=== PATIENT | female | born 1975 | race Caucasian/White ===

== ENCOUNTER 2016-08-17 18:12 | Inpatient (IN) | payer OTHER ==
[~2016-08-17] VITALS: Ht 162.6 cm; Wt 106.6 kg
[~2016-08-17 18:12] MED LIST: ASPI1TAB PO; CETI10TA PO; CLON0.5T PO; GABA300C3 PO; GEOD20CA14 PO; GEOD40CA2 PO; HYDR25T PO; IPRASOL4 INH; IRON65TA PO; MAXA10TA15 PO; MONT10TA2 PO; NICO21PAT TD; OXYB10TA PO; PANT40TA2 PO; PARO40TA PO; RANI150T PO; SYMB16INH INH; TRAZ100T4 PO; TRAZ10TA PO; VERA1TAB10 PO; ZIPR80CA12 PO
[2016-08-17 19:41] LABS: MEAN CORPUSCULAR HEMOGLOBIN 31.7 pg (27.0-33.0); MEAN CORPUSCULAR HGB CONC 33.3 g/dl (32.0-36.5); MEAN CORPUSCULAR VOLUME 95.3 fl (80.0-96.0); RED CELL DISTRIBUTION WIDTH 12.4 % (11.5-14.5); WHITE BLOOD COUNT 7.5 K/mm3 (4.0-10.0)
[2016-08-17 20:11] LABS: ALBUMIN/GLOBULIN RATIO 1.21 (1.00-1.93); ALKALINE PHOSPHATASE 67 U/L (45-117); ALT/SGPT 18 U/L (12-78); ANION GAP 7 MEQ/L (8-16); AST/SGOT 13 U/L (15-37); BILIRUBIN,DIRECT < 0.1 MG/DL (0.0-0.2); BILIRUBIN,TOTAL 0.2 MG/DL (0.2-1.0); BLOOD UREA NITROGEN 11 MG/DL (7-18); CALCIUM LEVEL 8.6 MG/DL (8.5-10.1); CARBON DIOXIDE LEVEL 30 MEQ/L (21-32); CHLORIDE LEVEL 106 MEQ/L (98-107); CREATININE FOR GFR 0.75 MG/DL (0.55-1.02); GLOMERULAR FILTRATION RATE > 60.0 (>58); GLUCOSE, FASTING 102 MG/DL (70-105); SODIUM LEVEL 143 MEQ/L (136-145); TOTAL PROTEIN 7.3 GM/DL (6.4-8.2)
[2016-08-17] MEDS ORDERED: REXU1TAB2 PO (20:20)
[2016-08-17] MEDS ORDERED: TRAZ100T4 PO (20:20)
[2016-08-17] MEDS ORDERED: GEOD60CA PO (20:20)
[2016-08-17] MEDS ORDERED: HYDR1CAP25 PO ×2 (20:20)
[2016-08-17] MEDS ORDERED: TYLE500T78 PO (20:20)
[2016-08-17] MEDS ORDERED: PRAZ1CAP PO (20:20)
[2016-08-17] MEDS ORDERED: PAXI40TA2 PO (20:20)
[2016-08-17 20:43] LABS: CONTROL LINE INT CTR LINE PRESENT; METHADONE URINE NEGATIVE (NEGATIVE); TRICYCLIC ANTIDEPRESS URINE NEGATIVE (NEGATIVE)
[2016-08-17] MEDS ORDERED: PANTOPRAZOLE 40MG TAB (PROTONIX) As Ordered ONE (21:17)
[2016-08-17] MEDS ORDERED: ZIPRASIDONE 20MG CAPSULE (GEODON) As Ordered ONE (21:18)
[2016-08-17] MEDS ORDERED: hydrOXYzine 25 MG TAB As Ordered ONE (21:18)
[2016-08-17] MEDS ORDERED: raNITIdine SYRUP 150 MG/10 ML UDC PO ONE (21:30)
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
--- NOTE | 2016-08-17 22:23 | EDDOCDS ---
Physician Documentation [facility] Name: Edna Serrano Age: 41 yrs Sex: Female : 1975 Arrival Date: 08/17/2016 Time: 18:12 Bed BHU1 Private MD: Unknown, Family Dr Disposition: 08/17/16 20:54 Hospitalization ordered by Rosamaria Cheung for Inpatient Admission. Preliminary diagnosis are Suicidal ideations, Adjustment disorder with depressed mood. - Bed requested for Admit. - Status is Inpatient Admission. rw1 - Condition is Stable. - Problem is an ongoing problem. - Symptoms are unchanged. Historical: - Allergies: Ceclor; Clindamycin; Lamictal; meloxicam; PENICILLINS; Septra; SULFA (SULFONAMIDES); - Home Meds: 1. hydroxyzine HCl 25 mg Oral tab 1 tab 3 times per day (Last dose: 08/17/2016 08:00) 2. Paxil 40 mg Oral tab 1 tab once daily (Last dose: 08/17/2016 08:00) 3. Geodon 60 mg oral cap 2 times per day 4. trazodone 100 mg Oral tab 1 tab 5. montelukast 10 mg oral tab 1 tab once daily 6. cetirizine 10 mg oral tab 1 tab once daily 7. Protonix 40 mg Oral TbEC 1 tab 2 times per day 8. Zantac 150 mg Oral tab 1 tab 2 times per day 9. verapamil 120 mg Oral tab daily 10. oxybutynin chloride 10 mg Oral tr24 1 tab once daily 11. Iron CR Oral 12. aspirin 81 mg Oral tab 1 tab once daily 13. Symbicort 160-4.5 mcg/actuation inhalation HFAA 2 puffs 2 times per day 14. DuoNeb 0.5 mg-3 mg(2.5 mg base)/3 mL Inhl nebu as needed 15. Maxalt 10 mg oral tab 16. prazoin unknown dosage Unknown daily - PMHx: Migraines; Bipolar disorder; PTSD; Borderline Personality Disorder; Depression; Anxiety; Asthma; Osteoarthritis; Heart Murmur; TIA; Anemia; GERD; [place]; Seasonal Allergies; Cutting; - PSHx: Hysterectomy; Hernia repair- Umbilical; Carpal Tunnel Repair- Right; Gastric Bypass; Cholecystectomy; - Social history: Smoking status: Patient uses tobacco products, current every day smoker. No barriers to communication noted, The patient speaks fluent [place], Preferred Language: [place]. - Family history: Not pertinent. - : The pt / caregiver states he / she is not on anticoagulants. Home medication list is obtained from the patient. - Exposure Risk Screening:: None identified. HEAVY MEDIA OPERATOR: 08/17 18:30 3, Living 3, LMP N/A - Hysterectomy lf1 Vital Signs: 18:14 BP 128 / 93; Pulse 101; Resp 18 S; Temp 96.9(O); Pulse Ox 98% on R/A; Weight 104.33 kg gr2 / 230.01 lbs (M); Height 5 ft. 4 in. (162.56 cm) (R); Pain 3/10; 22:14 BP 131 / 83; Pulse 70; Resp 16; Temp 97.0(T); Pulse Ox 98% on R/A; rw1 18:14 Body Mass Index 39.48 (104.33 kg, 162.56 cm) gr2 MDM: 18:24 Consult PFS/PSA/Bracelet Maker Novelty ordered. sd1 18:24 Consult PFS/PSA/Bracelet Maker Novelty: Patient's case requires discussion with on-call sd1 Psychiatrist ordered. 18:24 PSA/PFS to call Nursing [employer] [address] Reporter, to enter patient data on [place] Safe Act if patient sd1 involuntarily admitted or transferred for SI or HI ordered. 18:24 Confirm accurate psychiatric medication list and times of last dosage ordered. sd1 18:24 Detain Pt Until Medically/PFS Cleared ordered. sd1 18:25 Acetaminophen Level Ordered. EDMS 18:25 Basic Metabolic Profile Ordered. EDMS 18:25 Complete Blood Count Ordered. EDMS 18:25 Drug Eval Toxicology ED Only Ordered. EDMS 18:25 Ethyl Alcohol (ethanol) Ordered. EDMS 18:25 Liver Profile Ordered. EDMS 18:25 Salicylate Level Ordered. EDMS 18:25 Thyroid Stimulating Hormone Ordered. EDMS 19:11 BED REQUEST+ADM ordered. EDMS 19:13 Financial registration complete. zo 19:19 [facility] Payment Agreement was scanned into [employer] and attached to record. zo 20:50 Basic Metabolic Profile Reviewed. ke 20:50 Liver Profile Reviewed. ke 20:50 Salicylate Level Reviewed. ke 20:50 Acetaminophen Level Reviewed. ke 20:50 Complete Blood Count Reviewed. ke 20:50 Drug Eval Toxicology ED Only Reviewed. ke 20:50 Ethyl Alcohol (ethanol) Reviewed. ke 20:50 Thyroid Stimulating Hormone Reviewed. ke 20:51 Consult PFS/PSA/Bracelet Maker Novelty complete. jmb 20:51 Consult PFS/PSA/Bracelet Maker Novelty: Patient's case requires discussion with on-call jmb Psychiatrist complete. 20:51 PSA/PFS to call Nursing Freel[employer] [address] Reporter, to enter patient data on [place] Safe [place] if patient jmb involuntarily admitted or transferred for SI or HI complete. 21:13 Admit to [facility]: ordered. EDMS 21:14 hydrOXYzine 25 mg PO once ordered. rw1 21:14 Ziprasidone 60 mg PO once; administer with food ordered. rw1 21:14 Pantoprazole 40 mg PO once ordered. rw1 21:14 Ranitidine 150 mg PO once ordered. rw1 21:17 E Legal paperwork was scanned into [employer] and attached to record. ms Administered Medications: 21:52 Drug: hydrOXYzine 25 mg [hydroxyzine HCl 25 mg tablet (1 tabs)] Route: PO; rw1 22:16 Follow up: Response: No Adverse Reaction rw1 21:52 Drug: Ziprasidone 60 mg [ziprasidone 20 mg capsule (3 caps)] Route: PO; rw1 22:16 Follow up: Response: No Adverse Reaction rw1 21:52 Drug: Pantoprazole 40 mg [pantoprazole 40 mg tablet,delayed release (1 tabs)] Route: PO;rw1 22:16 Follow up: Response: No Adverse Reaction rw1 21:52 Drug: Ranitidine 150 mg [ranitidine 150 mg tablet (1 tabs)] Route: PO; rw1 22:16 Follow up: Response: No Adverse Reaction rw1 Signatures: Dispatcher [employer] EDME Agueda Gleason MD MD sd1 Anita Canchola, PSA PSA ms Carl Santiago, PRINT SHOP ASSISTANT PRINT SHOP ASSISTANT Aubrey Law,WATERSHED COORDINATOR WATERSHED COORDINATOR rw1 Kleber [place] Lisa,RN RN lf1 Seven Roberts RN RN echo The chart was reviewed and I authenticate all verbal orders and agree with the evaluation and treatment provided.Attachments: 19:19 [facility] Payment Agreement zo MTDD
[2016-08-17 22:30] VITALS: BP 131/94
[2016-08-17] MEDS ORDERED: MOM 30ML SUSPENSION UDC PO PRN (23:15)
[2016-08-17] MEDS ORDERED: traZODone 50 MG TAB PO PRN (23:15)
[2016-08-17] MEDS ORDERED: MAALOX 30 ML SUSP *UDC PO PRN (23:15)
[2016-08-17] MEDS ORDERED: IPRATROPIUM 0.5MG/ALBUTEROL 2.5MG INH SOL UD 3ML (DUONEB)(J7620) NEB PRN (23:15)
[2016-08-18] MEDS: SYMBICORT 160/4.5MCG INHALER 6GM INH SCH ×3 (00:24→21:47)
[2016-08-18] MEDS: MONTELUKAST 10 MG TAB PO SCH ×2 (00:24→21:46)
[2016-08-18] MEDS: CETIRIZINE (ZyrTEC) 10 MG TAB PO SCH ×2 (00:24→22:31)
[2016-08-18] MEDS: oxyBUTYnin *DITROPAN XL* 5 MG TABCR PO SCH ×2 (00:24→21:47)
[2016-08-18] MEDS: PRAZOSIN 1 MG CAP PO SCH ×2 (00:31→21:46)
[2016-08-18 06:35] VITALS: BP 151/90
[2016-08-18] MEDS: ZIPRASIDONE 20MG CAPSULE (GEODON) PO SCH ×2 (08:54→17:49)
[2016-08-18] MEDS: PANTOPRAZOLE 40MG TAB (PROTONIX) PO SCH ×2 (08:54→21:46)
[2016-08-18] MEDS: NICOTINE 21MG/24HR 1 EA TRANSDERMAL TD SCH (08:54)
[2016-08-18] MEDS: ASPIRIN 81 MG ENTERIC TAB PO SCH (08:54)
[2016-08-18] MEDS: raNITIdine SYRUP 150 MG/10 ML UDC PO SCH ×2 (08:54→21:47)
[2016-08-18] MEDS: hydrOXYzine 25 MG TAB PO SCH ×3 (08:54→21:47)
[2016-08-18] MEDS: VERAPAMIL 120 MG SR TAB PO SCH (08:55)
[2016-08-18] MEDS ORDERED: PARoxetine 20 MG TAB PO SCH (09:00)
[2016-08-18] MEDS ORDERED: QUEtiapine FUMARATE 12.5 MG HALF-TAB PO PRN (11:00)
--- NOTE | 2016-08-18 11:49 | HPEPDOC ---
Medical History and Physical Date of Admission Aug 17, 2016 at 22:28 History and Physical PCP: Jarrett LIN ATTENDING: Dr. Graham Kingsley HPI: 41yoF admitted to [facility] for other specified depressive disorder, being medically examined today. Patient states she is having chronic low back pain which has been worse. Bilateral knee pain. Sometimes her knees lock up. She feels weak at times in her lower extremities. Pain has been radiating down her legs to her knees. Occasionally numbness and tingling in her legs. No loss of bowel or bladder control. Previously she had been following with pain management and [facility]. She moved and she has no longer been following there. She has been awaiting a new referral to pain management. She has no longer been taking gabapentin because she states it was ineffective. She does not complain of neck pain. No weakness, numbness, or tingling in upper extremities. She states she is known to have a pituitary cyst, a follow-up MRI was recently completed an [place]. She was referred to Dr. Briones, neurosurgery at [facility]. Appointment is scheduled for 09/06/16. Denies any fevers, chills, weakness, fatigue, RESENDEZ, CP, SOB, cough, palpitations, abdominal pain, N/V/D or changes in bowel or bladder habits. PMHx: Anxiety Depression Bipolar disorder PTSD Self-mutilation Migraine headache Asthma Osteoarthritis Chronic pain/low back pain. Vitiligo Allergic rhinitis GERD OAB Iron deficiency anemia History of obesity/gastric bypass PSHX: Hysterectomy Umbilical hernia repair Right carpal tunnel release Gastric bypass Cholecystectomy SOCHX: Resides in: Recently moved to [facility] from [facility] Marital Status: Kids: 3 Employment: Unemployed Tobacco use: 2 packs per day ETOH: One to 2 drinks per month Illicit Drugs: Denies IV Drug Use: Denies Tattoos done unprofessionally: Denies FAMHX: Mother: Alive, COPD, heart disease, osteoarthritis Father: , MVA Siblings: None Children: Alive, well Unexpected deaths due to medical reasons: None. ROS: As noted in HPI, otherwise 11pt ROS of systems reviewed and remarkable for hysterectomy PE: GEN: 41yoF, appears stated age. Well-nourished, well developed. No acute distress. Alert and oriented x 3. Pleasant, interactive. HEENT: Normocephalic, atraumatic. Pupils are equal, round, and reactive to light. Extraocular movements are intact. No nystagmus appreciated. Sclera are nonicteric. Conjunctiva without injection. Nose midline. Nasal turbinates without bogginess. EACs both patent BL. TMs both visualized and bunch with good cone of light, no bulging or erythema. No facial asymmetry. Moist mucous membranes. Dentition fair. Pharynx pink and moist, no cobblestoning. Neck supple , trachea midline. No lymphadenopathy or thyromegaly appreciated. CHEST: Regular rate and rhythm, +S1, +S2 LUNGS: Clear to auscultation bilaterally. No wheezes, rales, or rhonchi. Breathing appears symmetric and easy. Patient is speaking in full sentences. No accessory muscle use. ABD: Round, soft, non-tender, non-distended. +Bowel sounds throughout. No rebound or guarding. No costovertebral angle tenderness. EXT: Pulses 2+ bilaterally dorsalis pedis and radial. No lower extremity edema appreciated. SKIN: [place], dry, warm. Capillary refill <2sec. Vitiligo noted. Approx 1.5 cm Laceration left wrist. No drainage. NEURO: Alert and oriented x 3. Cranial nerves III-XII are intact. No focal deficits appreciated. EK06/08/16 sinus rhythm 79 bpm. A&P: 41yoF admitted to [facility] for other specified depressive disorder 1. Psych. Plan per Psychiatry. EKG on file. 2. Nicotine dependence. Patch available. 3. Asthma. Continue Symbicort, Singulair, DuoNeb as needed. 4. Follow up with PCP on discharge. 5. Allergic rhinitis. Continue Zyrtec 10 mg daily. 6. GERD. Continue Protonix/Zantac. 7. Chronic pain. Patient currently remains on Tylenol as needed. Apply Lidoderm patch to low back as needed. Patient requests pain management opinion. She states gabapentin in the past has been ineffective. 8. Chronic migraine headache. Continue verapamil 120 mg daily. Maxalt as needed at onset of headache. 9. Iron deficiency anemia. Continue iron supplement. 10. OAB. Continue oxybutynin. 11. Laceration left wrist. Appears to be healing. Monitor. 12. History of pituitary adenoma per patient. Request copy of imaging from [facility]. Patient has appointment scheduled with Dr. Briones, neurosurgery 09/06/16. 13. Staff member present throughout exam Mansi SOUZA. Vital Signs Vital Signs Label Value Date Time Patient Temperature 97.6 degrees F 08/18/16 0635 Temperature Source Tympanic 08/18/16 0635 Pulse 108 08/18/16 0635 Respiratory Rate 20 bpm 08/18/16 0635 Blood Pressure Assessment 151/90 (110) 08/18/16 0635 Blood Pressure Assessment 132/80 08/18/16 0031 Laboratory Data Labs 24H Laboratory Tests 2 08/17/16 19:26: Acetaminophen Level 18.5, Aspartate Amino Transf (AST/SGOT) 13L, Alanine Aminotransferase (ALT/SGPT) 18, Alkaline Phosphatase 67, Total Bilirubin 0.2, Direct Bilirubin < 0.1, Albumin 4.0, Albumin/Globulin Ratio 1.21, Anion Gap 7L, Calcium Level 8.6, Ethyl Alcohol Level < 0.003, Glomerular Filtration Rate > 60.0, Salicylates Level 4.5L, Thyroid Stimulating Hormone (TSH) 1.130, Total Protein 7.3 08/17/16 19:39: Urine Amphetamines Screen NEGATIVE, Urine Benzodiazepines Screen NEGATIVE, Urine Opiates Screen NEGATIVE, Urine Barbiturates Screen NEGATIVE, Urine Cannabinoids Screen NEGATIVE, Urine Cocaine Metabolite Screen NEGATIVE, Urine Methadone Screen NEGATIVE, Urine Tricyclic Antidepressants NEGATIVE CBC/BMP Laboratory Tests 08/17/16 19:26 Red Blood Count 4.68, Mean Corpuscular Volume 95.3, Mean Corpuscular Hemoglobin 31.7, Mean Corpuscular Hemoglobin Concent 33.3, Red Cell Distribution Width 12.4 Home Medications Scheduled (Iron) 325 Mg Tab 325 MG PO QHS Aspirin (Aspirin 81) 81 Mg Tab 81 MG PO DAILY Brexpiprazole (Rexulti) 0.5 Mg Tab 0.5 MG PO DAILY D/C OF 08/17/16 Budesonide/Formoterol (Symbicort 160-4.5 Mcg/Act) 60 Puff/Inhaler Aers 2 PUFF INH BID Cetirizine HCl (Cetirizine HCl) 10 Mg Tab 10 MG PO QHS Hydroxyzine Pamoate (Hydroxyzine Pamoate) 25 Mg Cap 25 MG PO TID Montelukast Sodium (Montelukast Sodium) 10 Mg Tab 10 MG PO QHS Oxybutynin Chloride (Oxybutynin Chloride ER) 10 Mg Tab 10 MG PO QHS Pantoprazole Sodium (Pantoprazole Sodium) 40 Mg Tab 40 MG PO BID Paroxetine Hydrochloride (Paxil) 40 Mg Tab 40 MG PO DAILY Prazosin Hcl (Prazosin HCl) 1 Mg Cap 1 MG PO QHS Ranitidine HCl (Ranitidine HCl) 150 Mg Tab 1 TAB PO BID Trazodone HCl (Trazodone HCl) 100 Mg Tab 100 MG PO QHS Verapamil HCl (Verapamil HCl ER) 120 Mg Tab 120 MG PO DAILY Ziprasidone Hydrochloride (Geodon) 60 Mg Cap 60 MG PO BID Scheduled PRN Acetaminophen (Tylenol Extra Strength) 500 Mg Tab 1,000 MG PO Q8H PRN PRN PAIN Albuterol/Ipratropium (Ipratropium [place]/Albut 0.5-2.5 (3) mg/3Ml) 1 Abida Abida 1 ABIDA INH QID PRN PRN SHORTNESS OF BREATH Hydroxyzine Pamoate (Hydroxyzine Pamoate) 25 Mg Cap 25 MG PO DAILY PRN PRN ANXIETY Rizatriptan Benzoate (Maxalt-Retail Planning Manager) 10 Mg Tab 10 MG PO PRN PRN PRN MIGRAINE Allergies Coded Allergies: Cefaclor (Unverified Allergy, Unknown, 07/08/15) Clindamycin (Unverified Allergy, Unknown, 07/08/15) Lamotrigine (Unverified Allergy, Unknown, 07/08/15) Meloxicam (Unverified Allergy, Unknown, 08/17/16) Penicillins (Unverified Allergy, Unknown, 07/08/15) Sulfa Antibiotics (Unverified Allergy, Unknown, 07/08/15) Sulfamethoxazole w/Trimethoprim (Unverified Allergy, Unknown, 08/17/16) Topiramate (Unverified Allergy, Unknown, 07/08/15) Valorie Vallejo Aug 18, 2016 11:49
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
[2016-08-18] MEDS: LIDOCAINE 5% (LIDODERM) PATCH TD SCH (12:29)
[2016-08-18] MEDS: OXcarbazepine 150 MG TAB PO SCH ×2 (12:29→21:47)
--- NOTE | 2016-08-18 16:50 | CR.PDOC ---
[facility] Pain Clinic Consultation General Date of Consultation: 08/18/16 Consultation Report For: Valorie Vallejo Chief Complaint The patient is a 41-year-old female admitted with a reason for visit of Other Specified Depressive D/O. pain management is asked to see the patient for history of chronic low back pain History of Present Illness Edna Serrano is a 41-year-old female who reports that she has had pain across her low back into the buttocks and into the legs for at least the last 5 years. She reports several falls including falling down the stairs which did increase her back pain. Reports that she has been treated by pain management in her former home where they did do interventional therapy which she found very helpful. She had also previously been on gabapentin 300 mg 3 times a day which she initially thought was not helpful but when she stopped it realized that it was helping to her pain under better control. Reports she also has a history of migraine headaches and has been on verapamil for prevention and has had Botox injections with great success. States that she was due for her Botox in June but was not able to receive this and headaches are now much more frequent and more severe. States that prior headache frequency was greater than 15 days per month and headaches were lasting 8-12 hours per day. Following Botox noted her headaches diminished to 2-3 per month and were much more manageable with her abortive medication. Reports that she had does have a dull headache today. Notes that her back pain is presently rated as a 6-7/10. Describes the back pain as an ache and a throb. Home Medications Scheduled (Iron) 325 Mg Tab 325 MG PO QHS (Reported) Aspirin (Aspirin 81) 81 Mg Tab 81 MG PO DAILY (Reported) Brexpiprazole (Rexulti) 0.5 Mg Tab 0.5 MG PO DAILY (Reported) D/C OF 08/17/16 Budesonide/Formoterol (Symbicort 160-4.5 Mcg/Act) 60 Puff/Inhaler Aers 2 PUFF INH BID (Reported) Cetirizine HCl (Cetirizine HCl) 10 Mg Tab 10 MG PO QHS (Reported) Hydroxyzine Pamoate (Hydroxyzine Pamoate) 25 Mg Cap 25 MG PO TID (Reported) Montelukast Sodium (Montelukast Sodium) 10 Mg Tab 10 MG PO QHS (Reported) Oxybutynin Chloride (Oxybutynin Chloride ER) 10 Mg Tab 10 MG PO QHS (Reported) Pantoprazole Sodium (Pantoprazole Sodium) 40 Mg Tab 40 MG PO BID (Reported) Paroxetine Hydrochloride (Paxil) 40 Mg Tab 40 MG PO DAILY (Reported) Prazosin Hcl (Prazosin HCl) 1 Mg Cap 1 MG PO QHS (Reported) Ranitidine HCl (Ranitidine HCl) 150 Mg Tab 1 TAB PO BID (Reported) Trazodone HCl (Trazodone HCl) 100 Mg Tab 100 MG PO QHS (Reported) Verapamil HCl (Verapamil HCl ER) 120 Mg Tab 120 MG PO DAILY (Reported) Ziprasidone Hydrochloride (Geodon) 60 Mg Cap 60 MG PO BID (Reported) Scheduled PRN Acetaminophen (Tylenol Extra Strength) 500 Mg Tab 1,000 MG PO Q8H PRN PRN PAIN ( Reported) Albuterol/Ipratropium (Ipratropium [place]/Albut 0.5-2.5 (3) mg/3Ml) 1 Abida Abida 1 ABIDA INH QID PRN PRN SHORTNESS OF BREATH (Reported) Hydroxyzine Pamoate (Hydroxyzine Pamoate) 25 Mg Cap 25 MG PO DAILY PRN PRN ANXIETY (Reported) Rizatriptan Benzoate (Maxalt-Hospice Administrator) 10 Mg Tab 10 MG PO PRN PRN PRN MIGRAINE ( Reported) Allergies Coded Allergies: Cefaclor (Unverified Allergy, Unknown, 07/08/15) Clindamycin (Unverified Allergy, Unknown, 07/08/15) Lamotrigine (Unverified Allergy, Unknown, 07/08/15) Meloxicam (Unverified Allergy, Unknown, 08/17/16) Penicillins (Unverified Allergy, Unknown, 07/08/15) Sulfa Antibiotics (Unverified Allergy, Unknown, 07/08/15) Sulfamethoxazole w/Trimethoprim (Unverified Allergy, Unknown, 08/17/16) Topiramate (Unverified Allergy, Unknown, 07/08/15) Past Medical History Medical History S medical history significant for depression with a history of self injury, migraine headache, pituitary adenoma to be evaluated by Dr. Martinez [facility]. Family History Family History Noncontributory Social History Social History Positive for tobacco use at 1-2 packs per day, alcohol at 1-2 servings daily. Denies illicit substance use. Review of Systems Subjective Constitutional: Reports: fatigue, other (denies fever or chills), Denies: unexplained weight loss HEENT: Denies: difficulty swallowing, hearing problems, nose congestion Skin: Denies: breakdown, lesions, rash Pulmonary: Denies: cough, dyspnea Cardiovascular: Denies: chest pain, edema, palpitations Gastrointestinal: Denies: loss of bowel control Genitourinary: Reports: other (notes urinary frequency), Denies: dysuria, hematuria, loss of bladder control Hematologic: Denies: blood dyscrasias, easy bleeding, easy bruising Endocrine: Denies: Diabetes mellitus Musculoskeletal: Reports: leg pain, muscle stiffness, other (low back pain radiating into the hips), spasms Neurological: Reports: migraines, numbness, pre-existing deficit, Denies: seizures, tremors, weakness Psych: Reports: depression, mood normal, other (as per Dr. stephens) Physical Examination Physical Examination Vital Signs/I&O Vital Signs Date Time Temp Pulse Resp B/P Pulse Ox O2 Delivery O2 Flow Rate FiO2 08/18/16 08:55 108 151/90 08/18/16 06:35 97.6 20 08/17/16 22:30 94 Room Air General Exam: Positive: alert, attentive, no acute distress, oriented times three, talkative Visual Analog Score (VAS) For: 7 Chest Exam: Positive: Clear to auscultation, Negative: Rales, Wheezing Heart Exam: Positive: Normal S1, S2, Regular rate and rhythm, Negative: Murmurs, Rubs Abdominal Exam: Positive: Nondistended, Normal bowel sounds, Soft Extremity Exam: Negative: Edema Skin Exam: Positive: Dry, Warm, Negative: Lesions, Rashes Neuro Exam: Positive: Muscle Strength U/L Ext., Normal Tone, Other (DTRs 1+ in the bilateral upper extremities 2+ at the right knee trace to absent at the left knee) Psych Exam: Positive: Oriented times three, Other (excellent historian, pleasant and interact with, good eye contact) Inspection of spine Point tenderness over lumbar spinous processes and across the lumbosacral axis. Specific tenderness is elicited over the lumbar facets and paravertebral muscles bilaterally. No specific sacroiliac joint tenderness noted. Muscle strength 5 over 5 distally and proximally in the upper and lower extremities. Able to rise to a standing position. Posture is upright gait is wide-based but nonantalgic Laboratory Data Labs 24H Laboratory Tests 2 08/17/16 19:26: Acetaminophen Level 18.5, Aspartate Amino Transf (AST/SGOT) 13L, Alanine Aminotransferase (ALT/SGPT) 18, Alkaline Phosphatase 67, Total Bilirubin 0.2, Direct Bilirubin < 0.1, Albumin 4.0, Albumin/Globulin Ratio 1.21, Anion Gap 7L, Calcium Level 8.6, Ethyl Alcohol Level < 0.003, Glomerular Filtration Rate > 60.0, Salicylates Level 4.5L, Thyroid Stimulating Hormone (TSH) 1.130, Total Protein 7.3 08/17/16 19:39: Urine Amphetamines Screen NEGATIVE, Urine Benzodiazepines Screen NEGATIVE, Urine Opiates Screen NEGATIVE, Urine Barbiturates Screen NEGATIVE, Urine Cannabinoids Screen NEGATIVE, Urine Cocaine Metabolite Screen NEGATIVE, Urine Methadone Screen NEGATIVE, Urine Tricyclic Antidepressants NEGATIVE Assessment 1 migraine headache without aura 2. Chronic low back pain 3. Lumbar facet arthropathy per history Recommendation and Plan Recommendation and plan. Would recommend restart of gabapentin 300 mg at twice per day. She has recently been started on oxcarbazepine so I would not want to return to her previous dose of gabapentin. She is currently using Lidoderm patch which she has found helpful. If she continues to have significant pain while on the unit could try a small dose of tizanidine 2 mg twice a day for muscle spasms. Currently her health care provider is Rand Khan at [facility]. She has had previous very good response to both Botox and diagnostic facet block and radiofrequency denervation. Would recommend that she obtain a referral to the [facility] pain center or to another pain center of her choice for further evaluation and treatment with these therapies. I did also suggest to the patient that she take advantage of the yoga classes and she thought that this might be a good idea. Thank you Vallejo for allowing us to participate in the care of your patient Edna Serrano. Should you have any further questions we'll be glad to discuss this with you at any time. Angelita Reddy Aug 18, 2016 16:50
[2016-08-18 18:00] VITALS: BP 106/67
[2016-08-18] MEDS: **NOTE PATIENT COMMENT** MISC XX SCH (21:00)
[2016-08-18] MEDS: QUEtiapine FUMARATE 100 MG TAB PO SCH (21:46)
[2016-08-18] MEDS: FERROUS SULFATE 325MG TAB PO SCH (21:47)
[2016-08-19 06:44] VITALS: BP 128/83
[2016-08-19] MEDS: SYMBICORT 160/4.5MCG INHALER 6GM INH SCH ×2 (08:14→20:40)
[2016-08-19] MEDS: PANTOPRAZOLE 40MG TAB (PROTONIX) PO SCH ×2 (08:14→20:40)
[2016-08-19] MEDS: hydrOXYzine 25 MG TAB PO SCH ×3 (08:14→20:40)
[2016-08-19] MEDS: PARoxetine 10MG TABLET PO SCH (08:14)
[2016-08-19] MEDS: ASPIRIN 81 MG ENTERIC TAB PO SCH (08:14)
[2016-08-19] MEDS: ZIPRASIDONE 20MG CAPSULE (GEODON) PO SCH ×2 (08:14→17:58)
[2016-08-19] MEDS: OXcarbazepine 150 MG TAB PO SCH ×2 (08:14→20:41)
[2016-08-19] MEDS: NICOTINE 21MG/24HR 1 EA TRANSDERMAL TD SCH (08:15)
[2016-08-19] MEDS: raNITIdine SYRUP 150 MG/10 ML UDC PO SCH ×2 (08:15→20:39)
[2016-08-19] MEDS: VERAPAMIL 120 MG SR TAB PO SCH (08:16)
[2016-08-19] MEDS: LIDOCAINE 5% (LIDODERM) PATCH TD SCH (08:18)
--- NOTE | 2016-08-19 16:27 | IPN ---
DATE: 08/19/2016 A 41-year-old female with bipolar disorder and posttraumatic stress disorder (PTSD), admitted with severe symptoms of depression and suicidal ideation. MEDICATIONS: - Paxil 10 mg by mouth every morning - Seroquel 100 mg by mouth at bedtime - Seroquel 12.5 mg by mouth twice a day - Geodon 60 mg by mouth twice a day - prazosin 1 mg by mouth at bedtime SUBJECTIVE: "I'm in pain today." OBJECTIVE: No major changes from yesterday. Patient denies side effects from the medications. She slept better with the help of Seroquel. Patient's antidepressant medication has been decreased to a minimum since it could create hyperactivation and high anxiety and mixed episodes. MENTAL STATUS EXAMINATION: Patient is dressed in [facility]. Patient has fair eye contact. Speech is slow and monotone. Mood is depressed and anxious. Affect is labile. No evidence of delusions or hallucinations. Short and long-term memory are fair. Patient is fully oriented. Associations are intact. Thinking is logical. Thought content is appropriate. Patient is able to contract for safety in our unit. Denies suicidal or homicidal ideation during the interview. Insight and judgment are limited. ASSESSMENT: 1. Bipolar disorder, mixed episode. 2. Posttraumatic stress disorder. PLAN: 1. Continue with Paxil 10 mg by mouth every morning. 2. Seroquel 12.5 mg by mouth twice a day plus 100 mg by mouth at bedtime. 3. Trileptal 75 mg by mouth twice a day. 4. Geodon 60 mg by mouth twice a day. 5. Prazosin 1 mg by mouth at bedtime. 6. Continue medication management, individual and group therapy.
[2016-08-19 18:00] VITALS: BP 136/85
[2016-08-19] MEDS: ACETAMINOPHEN TAB 650MG DOSE (2X325MG) PO PRN (19:04)
[2016-08-19] MEDS: QUEtiapine FUMARATE 100 MG TAB PO SCH (20:40)
[2016-08-19] MEDS: PRAZOSIN 1 MG CAP PO SCH (20:40)
[2016-08-19] MEDS: MONTELUKAST 10 MG TAB PO SCH (20:40)
[2016-08-19] MEDS: FERROUS SULFATE 325MG TAB PO SCH (20:40)
[2016-08-19] MEDS: CETIRIZINE (ZyrTEC) 10 MG TAB PO SCH (20:40)
[2016-08-19] MEDS: oxyBUTYnin *DITROPAN XL* 5 MG TABCR PO SCH (20:42)
[2016-08-19] MEDS: **NOTE PATIENT COMMENT** MISC XX SCH (20:42)
--- NOTE | 2016-08-19 23:23 | EDDOCDS ---
Physician Documentation [facility] Name: Edna Serrano Age: 41 yrs Sex: Female : 1975 Arrival Date: 08/17/2016 Time: 18:12 Bed BHU1 Private MD: Unknown, Family Dr Disposition: 08/17/16 20:54 Hospitalization ordered by Rosamaria Cheung for Inpatient Admission. Preliminary diagnosis are Suicidal ideations, Adjustment disorder with depressed mood. - Bed requested for Admit. - Status is Inpatient Admission. rw1 - Condition is Stable. - Problem is an ongoing problem. - Symptoms are unchanged. Historical: - Allergies: Ceclor; Clindamycin; Lamictal; meloxicam; PENICILLINS; Septra; SULFA (SULFONAMIDES); - Home Meds: 1. hydroxyzine HCl 25 mg Oral tab 1 tab 3 times per day (Last dose: 08/17/2016 08:00) 2. Paxil 40 mg Oral tab 1 tab once daily (Last dose: 08/17/2016 08:00) 3. Geodon 60 mg oral cap 2 times per day 4. trazodone 100 mg Oral tab 1 tab 5. montelukast 10 mg oral tab 1 tab once daily 6. cetirizine 10 mg oral tab 1 tab once daily 7. Protonix 40 mg Oral TbEC 1 tab 2 times per day 8. Zantac 150 mg Oral tab 1 tab 2 times per day 9. verapamil 120 mg Oral tab daily 10. oxybutynin chloride 10 mg Oral tr24 1 tab once daily 11. Iron CR Oral 12. aspirin 81 mg Oral tab 1 tab once daily 13. Symbicort 160-4.5 mcg/actuation inhalation HFAA 2 puffs 2 times per day 14. DuoNeb 0.5 mg-3 mg(2.5 mg base)/3 mL Inhl nebu as needed 15. Maxalt 10 mg oral tab 16. prazoin unknown dosage Unknown daily - PMHx: Migraines; Bipolar disorder; PTSD; Borderline Personality Disorder; Depression; Anxiety; Asthma; Osteoarthritis; Heart Murmur; TIA; Anemia; GERD; [place]; Seasonal Allergies; Cutting; - PSHx: Hysterectomy; Hernia repair- Umbilical; Carpal Tunnel Repair- Right; Gastric Bypass; Cholecystectomy; - Social history: Smoking status: Patient uses tobacco products, current every day smoker. No barriers to communication noted, The patient speaks fluent Swiss, Preferred Language: Swiss. - Family history: Not pertinent. - : The pt / caregiver states he / she is not on anticoagulants. Home medication list is obtained from the patient. - Exposure Risk Screening:: None identified. INTERNAL MEDICINE NURSE PRACTITIONER: 08/17 18:30 3, Living 3, LMP N/A - Hysterectomy lf1 Vital Signs: 18:14 BP 128 / 93; Pulse 101; Resp 18 S; Temp 96.9(O); Pulse Ox 98% on R/A; Weight 104.33 kg gr2 / 230.01 lbs (M); Height 5 ft. 4 in. (162.56 cm) (R); Pain 3/10; 22:14 BP 131 / 83; Pulse 70; Resp 16; Temp 97.0(T); Pulse Ox 98% on R/A; rw1 18:14 Body Mass Index 39.48 (104.33 kg, 162.56 cm) gr2 MDM: 18:24 Consult PFS/PSA/Lever Miller ordered. sd1 18:24 Consult PFS/PSA/Lever Miller: Patient's case requires discussion with on-call sd1 Psychiatrist ordered. 18:24 PSA/PFS to call Nursing Route Aide, to enter patient data on [place] Safe [place] if patient sd1 involuntarily admitted or transferred for SI or HI ordered. 18:24 Confirm accurate psychiatric medication list and times of last dosage ordered. sd1 18:24 Detain Pt Until Medically/PFS Cleared ordered. sd1 18:25 Acetaminophen Level Ordered. EDMS 18:25 Basic Metabolic Profile Ordered. EDMS 18:25 Complete Blood Count Ordered. EDMS 18:25 Drug Eval Toxicology ED Only Ordered. EDMS 18:25 Ethyl Alcohol (ethanol) Ordered. EDMS 18:25 Liver Profile Ordered. EDMS 18:25 Salicylate Level Ordered. EDMS 18:25 Thyroid Stimulating Hormone Ordered. EDMS 19:11 BED REQUEST+ADM ordered. EDMS 19:13 Financial registration complete. zo 19:19 [facility] Payment Agreement was scanned into Perfect and attached to record. zo 20:50 Basic Metabolic Profile Reviewed. ke 20:50 Liver Profile Reviewed. ke 20:50 Salicylate Level Reviewed. ke 20:50 Acetaminophen Level Reviewed. ke 20:50 Complete Blood Count Reviewed. ke 20:50 Drug Eval Toxicology ED Only Reviewed. ke 20:50 Ethyl Alcohol (ethanol) Reviewed. ke 20:50 Thyroid Stimulating Hormone Reviewed. ke 20:51 Consult PFS/PSA/Lever Miller complete. jmb 20:51 Consult PFS/PSA/Lever Miller: Patient's case requires discussion with on-call jmb Psychiatrist complete. 20:51 PSA/PFS to call Nursing Route Aide, to enter [place] data [place] if patient jmb involuntarily admitted or transferred for SI or HI complete. 21:13 Admit to [facility]: ordered. EDMS 21:14 hydrOXYzine 25 mg PO once ordered. rw1 21:14 Ziprasidone 60 mg PO once; administer with food ordered. rw1 21:14 Pantoprazole 40 mg PO once ordered. rw1 21:14 Ranitidine 150 mg PO once ordered. rw1 21:17 [facility] Legal paperwork was scanned into Perfect and attached to record. ms 08/18 17:44 T-Sheet-- Draft Copy was scanned into Perfect and attached to record. klr Administered Medications: 08/17 21:52 Drug: hydrOXYzine 25 mg [hydroxyzine HCl 25 mg tablet (1 tabs)] Route: PO; rw1 22:16 Follow up: Response: No Adverse Reaction rw1 21:52 Drug: Ziprasidone 60 mg [ziprasidone 20 mg capsule (3 caps)] Route: PO; rw1 22:16 Follow up: Response: No Adverse Reaction rw1 21:52 Drug: Pantoprazole 40 mg [pantoprazole 40 mg tablet,delayed release (1 tabs)] Route: PO;rw1 22:16 Follow up: Response: No Adverse Reaction rw1 21:52 Drug: Ranitidine 150 mg [ranitidine 150 mg tablet (1 tabs)] Route: PO; rw1 22:16 Follow up: Response: No Adverse Reaction rw1 Signatures: Dispatcher MedHoMailTime EDMS Agueda Gleason MD MD sd1 Anita Canchola, PSA PSA ms JackCarl, OUTSIDE PARTS SALES OUTSIDE PARTS SALES Aubrey Law,ARCHITECT IN TRAINING ARCHITECT IN TRAINING rw1 Kleber Naranjo LisaRN RN lf1 Seven Roberts RN RN Sally Cates klnilda The chart was reviewed and I authenticate all verbal orders and agree with the evaluation and treatment provided.Attachments: 19:19 [facility] Payment Agreement zo 08/18 17:44 T-Sheet-- Draft Copy klr Chart Complete MTDD
--- NOTE | 2016-08-19 23:23 | EDDOCDS ---
Physician Documentation [facility] Name: Edna Serrano Age: 41 yrs Sex: Female : 1975 Arrival Date: 08/17/2016 Time: 18:12 Bed BHU1 Private MD: Unknown, Family Dr Disposition: 08/17/16 20:54 Hospitalization ordered by Rosamaria Cheung for Inpatient Admission. Preliminary diagnosis are Suicidal ideations, Adjustment disorder with depressed mood. - Bed requested for Admit. - Status is Inpatient Admission. rw1 - Condition is Stable. - Problem is an ongoing problem. - Symptoms are unchanged. Historical: - Allergies: Ceclor; Clindamycin; Lamictal; meloxicam; PENICILLINS; Septra; SULFA (SULFONAMIDES); - Home Meds: 1. hydroxyzine HCl 25 mg Oral tab 1 tab 3 times per day (Last dose: 08/17/2016 08:00) 2. Paxil 40 mg Oral tab 1 tab once daily (Last dose: 08/17/2016 08:00) 3. Geodon 60 mg oral cap 2 times per day 4. trazodone 100 mg Oral tab 1 tab 5. montelukast 10 mg oral tab 1 tab once daily 6. cetirizine 10 mg oral tab 1 tab once daily 7. Protonix 40 mg Oral TbEC 1 tab 2 times per day 8. Zantac 150 mg Oral tab 1 tab 2 times per day 9. verapamil 120 mg Oral tab daily 10. oxybutynin chloride 10 mg Oral tr24 1 tab once daily 11. Iron CR Oral 12. aspirin 81 mg Oral tab 1 tab once daily 13. Symbicort 160-4.5 mcg/actuation inhalation HFAA 2 puffs 2 times per day 14. DuoNeb 0.5 mg-3 mg(2.5 mg base)/3 mL Inhl nebu as needed 15. Maxalt 10 mg oral tab 16. prazoin unknown dosage Unknown daily - PMHx: Migraines; Bipolar disorder; PTSD; Borderline Personality Disorder; Depression; Anxiety; Asthma; Osteoarthritis; Heart Murmur; TIA; Anemia; GERD; [place]; Seasonal Allergies; Cutting; - PSHx: Hysterectomy; Hernia repair- Umbilical; Carpal Tunnel Repair- Right; Gastric Bypass; Cholecystectomy; - Social history: Smoking status: Patient uses tobacco products, current every day smoker. No barriers to communication noted, The patient speaks fluent Marshallese, Preferred Language: Marshallese. - Family history: Not pertinent. - : The pt / caregiver states he / she is not on anticoagulants. Home medication list is obtained from the patient. - Exposure Risk Screening:: None identified. HEALTH COUNSELOR: 08/17 18:30 3, Living 3, LMP N/A - Hysterectomy lf1 Vital Signs: 18:14 BP 128 / 93; Pulse 101; Resp 18 S; Temp 96.9(O); Pulse Ox 98% on R/A; Weight 104.33 kg gr2 / 230.01 lbs (M); Height 5 ft. 4 in. (162.56 cm) (R); Pain 3/10; 22:14 BP 131 / 83; Pulse 70; Resp 16; Temp 97.0(T); Pulse Ox 98% on R/A; rw1 18:14 Body Mass Index 39.48 (104.33 kg, 162.56 cm) gr2 MDM: 18:24 Consult PFS/PSA/Preschool Principal ordered. sd1 18:24 Consult PFS/PSA/Preschool Principal: Patient's case requires discussion with on-call sd1 Psychiatrist ordered. 18:24 PSA/PFS to call Nursing Tool Maker Apprentice, to [place] if patient sd1 involuntarily admitted or transferred for SI or HI ordered. 18:24 Confirm accurate psychiatric medication list and times of last dosage ordered. sd1 18:24 Detain Pt Until Medically/PFS Cleared ordered. sd1 18:25 Acetaminophen Level Ordered. EDMS 18:25 Basic Metabolic Profile Ordered. EDMS 18:25 Complete Blood Count Ordered. EDMS 18:25 Drug Eval Toxicology ED Only Ordered. EDMS 18:25 Ethyl Alcohol (ethanol) Ordered. EDMS 18:25 Liver Profile Ordered. EDMS 18:25 Salicylate Level Ordered. EDMS 18:25 Thyroid Stimulating Hormone Ordered. EDMS 19:11 BED REQUEST+ADM ordered. EDMS 19:13 Financial registration complete. zo 19:19 [facility] [place] Agreement was scanned into [employer] and attached to record. zo 20:50 Basic Metabolic Profile Reviewed. ke 20:50 Liver Profile Reviewed. ke 20:50 Salicylate Level Reviewed. ke 20:50 Acetaminophen Level Reviewed. ke 20:50 Complete Blood Count Reviewed. ke 20:50 Drug Eval Toxicology ED Only Reviewed. ke 20:50 Ethyl Alcohol (ethanol) Reviewed. ke 20:50 Thyroid Stimulating Hormone Reviewed. ke 20:51 Consult PFS/PSA/Preschool Principal complete. jmb 20:51 Consult PFS/PSA/Preschool Principal: Patient's case requires discussion with on-call jmb Psychiatrist complete. 20:51 PSA/PFS to call Nursing Tool Maker Apprentice, to enter [place] if patient jmb involuntarily admitted or transferred for SI or HI complete. 21:13 Admit to [facility]: ordered. EDMS 21:14 hydrOXYzine 25 mg PO once ordered. rw1 21:14 Ziprasidone 60 mg PO once; administer with food ordered. rw1 21:14 Pantoprazole 40 mg PO once ordered. rw1 21:14 Ranitidine 150 mg PO once ordered. rw1 21:17 [facility] Legal paperwork was scanned into [employer] and attached to record. ms 08/18 17:44 T-Sheet-- Draft Copy was scanned into [employer] and attached to record. klr Administered Medications: 08/17 21:52 Drug: hydrOXYzine 25 mg [hydroxyzine HCl 25 mg tablet (1 tabs)] Route: PO; rw1 22:16 Follow up: Response: No Adverse Reaction rw1 21:52 Drug: Ziprasidone 60 mg [ziprasidone 20 mg capsule (3 caps)] Route: PO; rw1 22:16 Follow up: Response: No Adverse Reaction rw1 21:52 Drug: Pantoprazole 40 mg [pantoprazole 40 mg tablet,delayed release (1 tabs)] Route: PO;rw1 22:16 Follow up: Response: No Adverse Reaction rw1 21:52 Drug: Ranitidine 150 mg [ranitidine 150 mg tablet (1 tabs)] Route: PO; rw1 22:16 Follow up: Response: No Adverse Reaction rw1 Signatures: Dispatcher MedHoSuda EDMS Agueda Gleason MD MD sd1 Anita Canchola, PSA PSA ms JackCarl, WIRE STRANDER WIRE STRANDER Aubrey Law,CURTAIN WORKER CURTAIN WORKER rw1 Kleber [place] LisaRN RN lf1 Seven Roberts RN RN Sally Cates klnilda The chart was reviewed and I authenticate all verbal orders and agree with the evaluation and treatment provided.Attachments: 19:19 [facility] [place] Agreement zo 08/18 17:44 T-Sheet-- Draft Copy klr Chart Complete MTDD
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
[2016-08-20 06:34] VITALS: BP 132/84
[2016-08-20] MEDS: ACETAMINOPHEN TAB 650MG DOSE (2X325MG) PO PRN ×2 (07:24→13:20)
[2016-08-20] MEDS: SYMBICORT 160/4.5MCG INHALER 6GM INH SCH ×2 (08:13→20:27)
[2016-08-20] MEDS: PANTOPRAZOLE 40MG TAB (PROTONIX) PO SCH ×2 (08:15→20:27)
[2016-08-20] MEDS: ASPIRIN 81 MG ENTERIC TAB PO SCH (08:15)
[2016-08-20] MEDS: OXcarbazepine 150 MG TAB PO SCH ×2 (08:15→20:30)
[2016-08-20] MEDS: ZIPRASIDONE 20MG CAPSULE (GEODON) PO SCH ×2 (08:15→18:07)
[2016-08-20] MEDS: PARoxetine 10MG TABLET PO SCH (08:16)
[2016-08-20] MEDS: raNITIdine SYRUP 150 MG/10 ML UDC PO SCH ×2 (08:16→20:27)
[2016-08-20] MEDS: VERAPAMIL 120 MG SR TAB PO SCH (08:16)
[2016-08-20] MEDS: hydrOXYzine 25 MG TAB PO SCH ×3 (08:16→20:30)
[2016-08-20] MEDS: NICOTINE 21MG/24HR 1 EA TRANSDERMAL TD SCH (08:16)
[2016-08-20] MEDS: LIDOCAINE 5% (LIDODERM) PATCH TD SCH (08:17)
[2016-08-20] MEDS: GABAPENTIN 300 MG CAP PO SCH ×2 (15:08→20:29)
[2016-08-20] MEDS: tiZANidine 4 MG TAB PO PRN (15:08)
[2016-08-20 18:11] VITALS: BP 106/70
--- NOTE | 2016-08-20 19:48 | IPNPDOC ---
[facility] Progress Note Progress Note DATE OF SERVICE: 08/20/16 Subjective: Patient mostly in her room today. She is calm and cooperative, engaged in the interview. Patient reports increasing mood since admission. She denies SI/HI and AH/VH. Patient reports fair sleep and appetite. Patient reports med compliance and denies med s/e's. Objective: VITALS: wnl MENTAL STATUS EXAMINATION: Patient looks stated age, in NAD, mostly in her room today, calm and cooperative. Has fair eye contact. Speech RRR. Mood is euthymic Affect is full. No delusions or hallucinations noted. Memory is fair. The patient is fully oriented. Associations are intact. Thinking is linear. Thought content is appropriate, happy to be sleeping better on new pain regimen. Patient denies suicidal or homicidal ideation during the interview. Insight and judgment are fair. ASSESSMENT: 1. Depressive disorder, unspecified. 2. LBP. PLAN: 1. Continue close observation. 2. Continue current psychotropic med regimen. 3. Continue with individual and group therapy. Time spent: 30minutes Vital Signs Vital Signs Date Time Temp Pulse Resp B/P Pulse Ox O2 Delivery O2 Flow Rate FiO2 08/20/16 18:11 98.0 81 16 106/70 08/17/16 22:30 94 Room Air Current Medications Current Medications Acetaminophen (Tylenol Tab) 650 mg Q6HP PRN PO HEADACHE or DISCOMFORT Last administered on 08/20/16 13:20; Start 08/17/16 at 23:15; Stop 09/16/16 at 23:14 Al Hydrox/Mg Hydrox/Simethicone (Mylanta) 30 ml Q4HP PRN PO HEARTBURN/ INDIGESTION; Start 08/17/16 at 23:15; Stop 09/16/16 at 23:14 Albuterol/ Ipratropium (Duoneb (Ipr 0.5mg/Alb 2.5mg)) 3 ml Q6HP PRN NEB SOB/ WHEEZING; Start 08/17/16 at 23:15; Stop 09/16/16 at 23:14 Aspirin (Ecotrin) 81 mg DAILY PO Last administered on 08/20/16 08:15; Start at 09:00; Stop 09/17/16 at 08:59 Budesonide/ Formoterol Fumarate (Symbicort 160/ 4.5mcg) 2 puff BID INH Last administered on 08/20/16 08:13; Start 08/17/16 at 21:00; Stop 09/16/16 at 20:59 Cetirizine HCl (ZyrTEC) 10 mg QHS PO Last administered on 08/19/16 20:40; Start 08/17/16 at 21:00; Stop 09/16/16 at 20:59 Ferrous Sulfate (Ferrous Sulfate) 325 mg QHS PO Last administered on 08/19/16 20:40; Start 08/18/16 at 21:00; Stop 09/17/16 at 20:59 Gabapentin (Neurontin) 300 mg BID PO Last administered on 08/20/16 15:08; Start 08/20/16 at 09:00; Stop 09/19/16 at 08:59 Home Med (Med Rec Complete!) ASDIRECTED XX ; Start 08/17/16 at 20:30; Stop at 21:29; Status DC Hydroxyzine HCl (Atarax) 25 mg TID PO Last administered on 08/20/16 15:08; Start 08/18/16 at 09:00; Stop 09/17/16 at 08:59 Lidocaine (Lidoderm Patch) 1 patch DAILY TD Last administered on 08/20/16 08: 17; Start 08/18/16 at 09:00; Stop 09/17/16 at 08:59 Magnesium Hydroxide (Milk Of Magnesia) 30 ml DAILYPRN PRN PO CONSTIPATION; Start 08/17/16 at 23:15; Stop 09/16/16 at 23:14 Montelukast Sodium (Singulair) 10 mg QHS PO Last administered on 08/19/16 20: 40; Start 08/17/16 at 21:00; Stop 09/16/16 at 20:59 Nicotine (Nicoderm Cq 21mg) 1 patch DAILY TD Last administered on 08/20/16 08: 16; Start 08/18/16 at 09:00; Stop 09/17/16 at 08:59 Non-Formulary Medication ( See Comment Field Below ) REMOVE LIDODERM PATCH DAILY@21 XX Last administered on 08/19/16 20:42; Start 08/18/16 at 21:00; Stop 09/17/16 at 20:59 Oxcarbazepine (Trileptal) 75 mg BID PO Last administered on 08/20/16 08:15; Start 08/18/16 at 09:00; Stop 09/17/16 at 08:59 Oxybutynin Chloride (Ditropan Xl) 10 mg QHS PO Last administered on 08/19/16 20:42; Start 08/17/16 at 21:00; Stop 09/16/16 at 20:59 Pantoprazole Sodium (Protonix) 40 mg BID PO Last administered on 08/20/16 08: 15; Start 08/18/16 at 09:00; Stop 09/17/16 at 08:59 Paroxetine HCl (PAXil) 10 mg DAILY PO Last administered on 08/20/16 08:16; Start 08/19/16 at 09:00; Stop 09/18/16 at 08:59 Paroxetine HCl (PAXil) 40 mg DAILY PO Last administered on 08/18/16 08:54; Start 08/18/16 at 09:00; Stop 08/18/16 at 10:56; Status DC Prazosin HCl (Minipress) 1 mg QHS PO Last administered on 08/19/16 20:40; Start 08/17/16 at 21:00; Stop 09/16/16 at 20:59 Quetiapine Fumarate (SEROquel) 12.5 mg BID PRN PO ANXIETY; Start 08/18/16 at 11 :00; Stop 09/17/16 at 10:59 Quetiapine Fumarate (SEROquel) 100 mg QHS PO Last administered on 08/19/16 20: 40; Start 08/18/16 at 21:00; Stop 09/17/16 at 20:59 Ranitidine HCl (Zantac) 150 mg BID PO Last administered on 08/20/16 08:16; Start 08/18/16 at 09:00; Stop 09/17/16 at 08:59 Rizatriptan Benzoate (Maxalt-Senior Medical Transcriptionist) 10 mg Q2HP PRN PO MIGRAINE; Start 08/17/16 at 23:15; Stop 09/16/16 at 23:14 Tizanidine HCl (Zanaflex) 2 mg BIDP PRN PO MUSCLE SPASMS Last administered on 15:08; Start 08/20/16 at 15:00; Stop 09/19/16 at 14:59 Trazodone HCl (Desyrel) 50 mg QHSP PRN PO INSOMNIA; Start 08/17/16 at 23:15; Stop 08/18/16 at 10:56; Status DC Verapamil HCl (Isoptin-Sr, Calan Sr) 120 mg DAILY PO Last administered on 08:16; Start 08/18/16 at 09:00; Stop 09/17/16 at 08:59 Ziprasidone (Geodon) 60 mg BIDWM PO Last administered on 08/20/16 18:07; Start 08/18/16 at 08:00; Stop 09/17/16 at 07:59 Allergies Coded Allergies: Cefaclor (Unverified Allergy, Unknown, 07/08/15) Clindamycin (Unverified Allergy, Unknown, 07/08/15) Lamotrigine (Unverified Allergy, Unknown, 07/08/15) Meloxicam (Unverified Allergy, Unknown, 08/17/16) Penicillins (Unverified Allergy, Unknown, 07/08/15) Sulfa Antibiotics (Unverified Allergy, Unknown, 07/08/15) Sulfamethoxazole w/Trimethoprim (Unverified Allergy, Unknown, 08/17/16) Topiramate (Unverified Allergy, Unknown, 07/08/15) DAPHNE HUTCHINS MD Aug 20, 2016 19:47 Coded Allergies: Cefaclor (Unverified Allergy, Unknown, 07/08/15) Clindamycin (Unverified Allergy, Unknown, 07/08/15) Lamotrigine (Unverified Allergy, Unknown, 07/08/15) Meloxicam (Unverified Allergy, Unknown, 08/17/16) Penicillins (Unverified Allergy, Unknown, 07/08/15) Sulfa Antibiotics (Unverified Allergy, Unknown, 07/08/15) Sulfamethoxazole w/Trimethoprim (Unverified Allergy, Unknown, 08/17/16) Topiramate (Unverified Allergy, Unknown, 07/08/15) DAPHNE HUTCHINS MD Aug 20, 2016 19:47
[2016-08-20] MEDS: FERROUS SULFATE 325MG TAB PO SCH (20:29)
[2016-08-20] MEDS: PRAZOSIN 1 MG CAP PO SCH (20:29)
[2016-08-20] MEDS: CETIRIZINE (ZyrTEC) 10 MG TAB PO SCH (20:29)
[2016-08-20] MEDS: MONTELUKAST 10 MG TAB PO SCH (20:30)
[2016-08-20] MEDS: QUEtiapine FUMARATE 100 MG TAB PO SCH (20:30)
[2016-08-20] MEDS: oxyBUTYnin *DITROPAN XL* 5 MG TABCR PO SCH (20:31)
[2016-08-20] MEDS: **NOTE PATIENT COMMENT** MISC XX SCH (20:31)
[2016-08-21 06:31] VITALS: BP 121/82
[2016-08-21] MEDS: ASPIRIN 81 MG ENTERIC TAB PO SCH (07:50)
[2016-08-21] MEDS: PANTOPRAZOLE 40MG TAB (PROTONIX) PO SCH ×2 (07:50→20:05)
[2016-08-21] MEDS: raNITIdine SYRUP 150 MG/10 ML UDC PO SCH ×2 (07:50→20:04)
[2016-08-21] MEDS: ZIPRASIDONE 20MG CAPSULE (GEODON) PO SCH ×2 (07:51→18:16)
[2016-08-21] MEDS: GABAPENTIN 300 MG CAP PO SCH ×2 (07:51→20:05)
[2016-08-21] MEDS: OXcarbazepine 150 MG TAB PO SCH ×2 (07:51→20:58)
[2016-08-21] MEDS: PARoxetine 10MG TABLET PO SCH (07:51)
[2016-08-21] MEDS: VERAPAMIL 120 MG SR TAB PO SCH (07:51)
[2016-08-21] MEDS: hydrOXYzine 25 MG TAB PO SCH ×3 (07:52→20:05)
[2016-08-21] MEDS: SYMBICORT 160/4.5MCG INHALER 6GM INH SCH ×2 (07:52→20:04)
[2016-08-21] MEDS: NICOTINE 21MG/24HR 1 EA TRANSDERMAL TD SCH (07:52)
[2016-08-21] MEDS: LIDOCAINE 5% (LIDODERM) PATCH TD SCH (07:53)
[2016-08-21] MEDS: tiZANidine 4 MG TAB PO PRN ×2 (07:56→21:32)
--- NOTE | 2016-08-21 15:01 | IPNPDOC ---
[facility] Progress Note Progress Note DATE OF SERVICE: 08/21/16 Subjective: Patient again full in affect, cooperative, and engaged in the interview. Patient reports ongoing increasing mood since admission. She denies SI/HI and AH/VH. Patient reports fair sleep and appetite. Pain much improved on new pain regimen. Patient reports med compliance and denies med s/e's. Objective: VITALS: wnl MENTAL STATUS EXAMINATION: Patient looks stated age, in NAD, mostly in her room today, calm and cooperative. Has fair eye contact. Speech RRR. Mood is euthymic Affect is full. No delusions or hallucinations noted. Memory is fair. The patient is fully oriented. Associations are intact. Thinking is linear. Thought content is appropriate. Patient denies suicidal or homicidal ideation during the interview. Insight and judgment are fair. ASSESSMENT: 1. Depressive disorder, unspecified. 2. LBP. PLAN: 1. Continue close observation. 2. Continue current psychotropic med regimen. 3. Continue with individual and group therapy. Time spent: 30 minutes . Vital Signs Vital Signs Date Time Temp Pulse Resp B/P Pulse Ox O2 Delivery O2 Flow Rate FiO2 08/21/16 06:31 96.3 84 18 121/82 08/17/16 22:30 94 Room Air Current Medications Current Medications Acetaminophen (Tylenol Tab) 650 mg Q6HP PRN PO HEADACHE or DISCOMFORT Last administered on 08/20/16 13:20; Start 08/17/16 at 23:15; Stop 09/16/16 at 23:14 Al Hydrox/Mg Hydrox/Simethicone (Mylanta) 30 ml Q4HP PRN PO HEARTBURN/ INDIGESTION; Start 08/17/16 at 23:15; Stop 09/16/16 at 23:14 Albuterol/ Ipratropium (Duoneb (Ipr 0.5mg/Alb 2.5mg)) 3 ml Q6HP PRN NEB SOB/ WHEEZING; Start 08/17/16 at 23:15; Stop 09/16/16 at 23:14 Aspirin (Ecotrin) 81 mg DAILY PO Last administered on 08/21/16 07:50; Start at 09:00; Stop 09/17/16 at 08:59 Budesonide/ Formoterol Fumarate (Symbicort 160/ 4.5mcg) 2 puff BID INH Last administered on 08/21/16 07:52; Start 08/17/16 at 21:00; Stop 09/16/16 at 20:59 Cetirizine HCl (ZyrTEC) 10 mg QHS PO Last administered on 08/20/16 20:29; Start 08/17/16 at 21:00; Stop 09/16/16 at 20:59 Ferrous Sulfate (Ferrous Sulfate) 325 mg QHS PO Last administered on 08/20/16 20:29; Start 08/18/16 at 21:00; Stop 09/17/16 at 20:59 Gabapentin (Neurontin) 300 mg BID PO Last administered on 08/21/16 07:51; Start 08/20/16 at 09:00; Stop 09/19/16 at 08:59 Home Med (Med Rec Complete!) ASDIRECTED XX ; Start 08/17/16 at 20:30; Stop at 21:29; Status DC Hydroxyzine HCl (Atarax) 25 mg TID PO Last administered on 08/21/16 07:52; Start 08/18/16 at 09:00; Stop 09/17/16 at 08:59 Lidocaine (Lidoderm Patch) 1 patch DAILY TD Last administered on 08/21/16 07: 53; Start 08/18/16 at 09:00; Stop 09/17/16 at 08:59 Magnesium Hydroxide (Milk Of Magnesia) 30 ml DAILYPRN PRN PO CONSTIPATION; Start 08/17/16 at 23:15; Stop 09/16/16 at 23:14 Montelukast Sodium (Singulair) 10 mg QHS PO Last administered on 08/20/16 20: 30; Start 08/17/16 at 21:00; Stop 09/16/16 at 20:59 Nicotine (Nicoderm Cq 21mg) 1 patch DAILY TD Last administered on 08/21/16 07: 52; Start 08/18/16 at 09:00; Stop 09/17/16 at 08:59 Non-Formulary Medication ( See Comment Field Below ) REMOVE LIDODERM PATCH DAILY@21 XX Last administered on 08/20/16 20:31; Start 08/18/16 at 21:00; Stop 09/17/16 at 20:59 Oxcarbazepine (Trileptal) 75 mg BID PO Last administered on 08/21/16 07:51; Start 08/18/16 at 09:00; Stop 09/17/16 at 08:59 Oxybutynin Chloride (Ditropan Xl) 10 mg QHS PO Last administered on 08/20/16 20:31; Start 08/17/16 at 21:00; Stop 09/16/16 at 20:59 Pantoprazole Sodium (Protonix) 40 mg BID PO Last administered on 08/21/16 07: 50; Start 08/18/16 at 09:00; Stop 09/17/16 at 08:59 Paroxetine HCl (PAXil) 10 mg DAILY PO Last administered on 08/21/16 07:51; Start 08/19/16 at 09:00; Stop 09/18/16 at 08:59 Paroxetine HCl (PAXil) 40 mg DAILY PO Last administered on 08/18/16 08:54; Start 08/18/16 at 09:00; Stop 08/18/16 at 10:56; Status DC Prazosin HCl (Minipress) 1 mg QHS PO Last administered on 08/20/16 20:29; Start 08/17/16 at 21:00; Stop 09/16/16 at 20:59 Quetiapine Fumarate (SEROquel) 12.5 mg BID PRN PO ANXIETY; Start 08/18/16 at 11 :00; Stop 09/17/16 at 10:59 Quetiapine Fumarate (SEROquel) 100 mg QHS PO Last administered on 08/20/16 20: 30; Start 08/18/16 at 21:00; Stop 09/17/16 at 20:59 Ranitidine HCl (Zantac) 150 mg BID PO Last administered on 08/21/16 07:50; Start 08/18/16 at 09:00; Stop 09/17/16 at 08:59 Rizatriptan Benzoate (Maxalt-Line Pilot) 10 mg Q2HP PRN PO MIGRAINE; Start 08/17/16 at 23:15; Stop 09/16/16 at 23:14 Tizanidine HCl (Zanaflex) 2 mg BIDP PRN PO MUSCLE SPASMS Last administered on 07:56; Start 08/20/16 at 15:00; Stop 09/19/16 at 14:59 Trazodone HCl (Desyrel) 50 mg QHSP PRN PO INSOMNIA; Start 08/17/16 at 23:15; Stop 08/18/16 at 10:56; Status DC Verapamil HCl (Isoptin-Sr, Calan Sr) 120 mg DAILY PO Last administered on 07:51; Start 08/18/16 at 09:00; Stop 09/17/16 at 08:59 Ziprasidone (Geodon) 60 mg BIDWM PO Last administered on 08/21/16 07:51; Start 08/18/16 at 08:00; Stop 09/17/16 at 07:59 Allergies Coded Allergies: Cefaclor (Unverified Allergy, Unknown, 07/08/15) Clindamycin (Unverified Allergy, Unknown, 07/08/15) Lamotrigine (Unverified Allergy, Unknown, 07/08/15) Meloxicam (Unverified Allergy, Unknown, 08/17/16) Penicillins (Unverified Allergy, Unknown, 07/08/15) Sulfa Antibiotics (Unverified Allergy, Unknown, 07/08/15) Sulfamethoxazole w/Trimethoprim (Unverified Allergy, Unknown, 08/17/16) Topiramate (Unverified Allergy, Unknown, 07/08/15) DAPHNE HUTCHINS MD Aug 21, 2016 15:01 Lamotrigine (Unverified Allergy, Unknown, 07/08/15) Meloxicam (Unverified Allergy, Unknown, 08/17/16) Penicillins (Unverified Allergy, Unknown, 07/08/15) Sulfa Antibiotics (Unverified Allergy, Unknown, 07/08/15) Sulfamethoxazole w/Trimethoprim (Unverified Allergy, Unknown, 08/17/16) Topiramate (Unverified Allergy, Unknown, 07/08/15) DAPHNE HUTCHINS MD Aug 21, 2016 15:01
[2016-08-21 18:00] VITALS: BP 132/83
[2016-08-21] MEDS: ACETAMINOPHEN TAB 650MG DOSE (2X325MG) PO PRN (18:50)
[2016-08-21] MEDS: MONTELUKAST 10 MG TAB PO SCH (20:05)
[2016-08-21] MEDS: QUEtiapine FUMARATE 100 MG TAB PO SCH (20:05)
[2016-08-21] MEDS: oxyBUTYnin *DITROPAN XL* 5 MG TABCR PO SCH (20:05)
[2016-08-21] MEDS: FERROUS SULFATE 325MG TAB PO SCH (20:05)
[2016-08-21] MEDS: RIZATRIPTAN MLT 10 MG TAB PO PRN (20:05)
[2016-08-21] MEDS: CETIRIZINE (ZyrTEC) 10 MG TAB PO SCH (20:05)
[2016-08-21] MEDS: PRAZOSIN 1 MG CAP PO SCH (20:05)
[2016-08-21] MEDS: **NOTE PATIENT COMMENT** MISC XX SCH (20:57)
[2016-08-21] MEDS ORDERED: QUEtiapine FUMARATE 50 MG TAB PO ONE (22:45)
[2016-08-22] MEDS: RIZATRIPTAN MLT 10 MG TAB PO PRN (01:12)
[2016-08-22] MEDS: ACETAMINOPHEN TAB 650MG DOSE (2X325MG) PO PRN (06:30)
[2016-08-22 06:57] VITALS: BP 138/84
[2016-08-22] MEDS: PARoxetine 10MG TABLET PO SCH (08:04)
[2016-08-22] MEDS: ASPIRIN 81 MG ENTERIC TAB PO SCH (08:04)
[2016-08-22] MEDS: ZIPRASIDONE 20MG CAPSULE (GEODON) PO SCH ×2 (08:04→17:44)
[2016-08-22] MEDS: OXcarbazepine 150 MG TAB PO SCH ×2 (08:04→19:09)
[2016-08-22] MEDS: hydrOXYzine 25 MG TAB PO SCH ×3 (08:04→19:11)
[2016-08-22] MEDS: raNITIdine SYRUP 150 MG/10 ML UDC PO SCH ×2 (08:04→19:09)
[2016-08-22] MEDS: GABAPENTIN 300 MG CAP PO SCH ×2 (08:04→19:10)
[2016-08-22] MEDS: PANTOPRAZOLE 40MG TAB (PROTONIX) PO SCH ×2 (08:04→19:10)
[2016-08-22] MEDS: SYMBICORT 160/4.5MCG INHALER 6GM INH SCH ×2 (08:05→19:10)
[2016-08-22] MEDS: VERAPAMIL 120 MG SR TAB PO SCH (08:05)
[2016-08-22] MEDS: LIDOCAINE 5% (LIDODERM) PATCH TD SCH (08:05)
[2016-08-22] MEDS: NICOTINE 21MG/24HR 1 EA TRANSDERMAL TD SCH ×2 (08:08→14:39)
--- NOTE | 2016-08-22 14:44 | IPN ---
DATE: 08/22/2016 A 41-year-old female with bipolar disorder, posttraumatic stress disorder (PTSD), admitted with severe symptoms of depression and suicidal ideation. MEDICATIONS: - Paxil 10 mg by mouth every morning - Seroquel 100 mg by mouth at bedtime - Seroquel 12.5 mg by mouth twice a day - Geodon 60 mg by mouth twice a day - prazosin 1 mg by mouth at bedtime - Neurontin 300 mg by mouth twice a day SUBJECTIVE: "I had a terrible headache last night." OBJECTIVE: Patient is improving slowly. Patient reports her mood is better. Her psychomotor retardation is improved. Patient is denying side effects from the medication. Patient said that she could not sleep last night, because she had one of the worst migraine headaches she ever had. Patient is able to contract for safety during the interview. MENTAL STATUS EXAMINATION: Dressed in [facility]. Has poor eye contact. The speech is soft and monotone. Mood is depressed and anxious. Affect is congruent with mood. No delusions or hallucinations. Memory is fair. Patient is fully oriented. Associations are intact. Thinking is logical. Thought content is appropriate. Patient is able to contract for safety and denies suicidal or homicidal ideation during the interview. Insight and judgment are limited. ASSESSMENT: 1. Bipolar disorder, mixed episode. 2. Posttraumatic stress disorder. PLAN: 1. Continue with Paxil 10 mg by mouth every morning. 2. Seroquel 12.5 mg by mouth twice a day plus 100 mg by mouth at bedtime. 3. Trileptal 75 mg by mouth twice a day. 4. Geodon 60 mg by mouth twice a day. 5. Prazosin 1 mg by mouth at bedtime. 6. Continue with medication management, individual and group therapy.
[2016-08-22 18:00] VITALS: BP 130/80
[2016-08-22] MEDS: PRAZOSIN 1 MG CAP PO SCH (19:10)
[2016-08-22] MEDS: FERROUS SULFATE 325MG TAB PO SCH (19:10)
[2016-08-22] MEDS: tiZANidine 4 MG TAB PO PRN (19:10)
[2016-08-22] MEDS: QUEtiapine FUMARATE 100 MG TAB PO SCH (19:10)
[2016-08-22] MEDS: oxyBUTYnin *DITROPAN XL* 5 MG TABCR PO SCH (19:11)
[2016-08-22] MEDS: MONTELUKAST 10 MG TAB PO SCH (19:11)
[2016-08-22] MEDS: **NOTE PATIENT COMMENT** MISC XX SCH (19:11)
[2016-08-22] MEDS: CETIRIZINE (ZyrTEC) 10 MG TAB PO SCH (19:11)
[2016-08-23 06:35] VITALS: BP 140/86
[2016-08-23] MEDS: tiZANidine 4 MG TAB PO PRN (06:48)
[2016-08-23] MEDS: ASPIRIN 81 MG ENTERIC TAB PO SCH (07:57)
[2016-08-23] MEDS: PANTOPRAZOLE 40MG TAB (PROTONIX) PO SCH (07:57)
[2016-08-23] MEDS: GABAPENTIN 300 MG CAP PO SCH (07:57)
[2016-08-23] MEDS: raNITIdine SYRUP 150 MG/10 ML UDC PO SCH (07:57)
[2016-08-23] MEDS: NICOTINE 21MG/24HR 1 EA TRANSDERMAL TD SCH (07:57)
[2016-08-23 07:58] VITALS: BP 140/86
[2016-08-23] MEDS: OXcarbazepine 150 MG TAB PO SCH (07:58)
[2016-08-23] MEDS: VERAPAMIL 120 MG SR TAB PO SCH (07:58)
[2016-08-23] MEDS: ZIPRASIDONE 20MG CAPSULE (GEODON) PO SCH ×2 (07:58→17:32)
[2016-08-23] MEDS: PARoxetine 10MG TABLET PO SCH (07:58)
[2016-08-23] MEDS: hydrOXYzine 25 MG TAB PO SCH ×2 (07:58→14:26)
[2016-08-23] MEDS: SYMBICORT 160/4.5MCG INHALER 6GM INH SCH (07:59)
[2016-08-23] MEDS: LIDOCAINE 5% (LIDODERM) PATCH TD SCH (07:59)
[2016-08-23] MEDS ORDERED: LIDO1CRE2 TOP (09:21)
[2016-08-23] MEDS ORDERED: NICO21PAT TD (09:21)
[2016-08-23] MEDS ORDERED: OXCA150T PO (09:55)
[2016-08-23] MEDS ORDERED: PARO5TAB PO (09:55)
[2016-08-23] MEDS ORDERED: HYDR25T PO (09:55)
[2016-08-23] MEDS ORDERED: QUET1TAB8 PO (09:55)
[2016-08-23] MEDS ORDERED: GABA300C3 PO (09:55)
[2016-08-23] MEDS ORDERED: GEOD20CA14 PO (09:55)
[2016-08-23] MEDS ORDERED: MINI1CAP PO (09:55)
[2016-08-23] MEDS ORDERED: TYLE325T5 PO (12:15)
[2016-08-23] MEDS ORDERED: PARO10TA84 PO (14:17)
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
== END 2016-08-23 17:32 | disposition home or self-care (01) | DRG 753 ==
LOC: M ED 18:12 → M PSY 22:27
PROVIDERS: ADMIT Psychiatry & Neurology Psychiatry; ATTEND Psychiatry & Neurology Psychiatry
DX: F31.60 Bipolar disorder, current episode mixed, unspecified (principal); D50.9 Iron deficiency anemia, unspecified; F43.10 Post-traumatic stress disorder, unspecified; F60.3 Borderline personality disorder; F17.210 Nicotine dependence, cigarettes, uncomplicated; J45.909 Unspecified asthma, uncomplicated; M19.90 Unspecified osteoarthritis, unspecified site; K21.9 Gastro-esophageal reflux disease without esophagitis; I25.2 Old myocardial infarction; M54.5 Low back pain; M25.561 Pain in right knee; M25.562 Pain in left knee; L80 Vitiligo; G43.709 Chronic migraine without aura, not intractable, without status migrainosus; Z81.8 Family history of other mental and behavioral disorders; Z86.73 Personal history of transient ischemic attack (TIA), and cerebral infarction without residual deficits; Z91.5 Personal history of self-harm; Z91.410 Personal history of adult physical and sexual abuse; Z98.84 Bariatric surgery status; Z79.82 Long term (current) use of aspirin; Z91.411 Personal history of adult psychological abuse; Z88.0 Allergy status to penicillin; Z88.1 Allergy status to other antibiotic agents; Z88.2 Allergy status to sulfonamides; Z88.6 Allergy status to analgesic agent; Z88.8 Allergy status to other drugs, medicaments and biological substances

== ENCOUNTER → 2016-10-04 | Outpatient (CLI) | payer OTHER ==
[~2016-10-04] MED LIST changes: +GABA-282 PO; -GABA300C3 PO; +GEOD60CA PO; +HYDR1CAP25 PO; +LIDO1CRE2 TOP; +MINI1CAP PO; +OXCA150T PO; +PARO10TA84 PO; -PARO40TA PO; +PARO40TA2 PO; +PARO5TAB PO; +PAXI40TA2 PO; +PRAZ1CAP PO; +QUET1TAB8 PO; +REXU1TAB2 PO; +TYLE325T5 PO; +TYLE500T78 PO
--- NOTE | 2016-10-12 23:58 | ECWPNPC ---
PATIENT NAME: TANIA CAO : 1975 GENDER: FEMALE VISIT DATE: 10/04/2016 DISCHARGE DATE: 10/04/16 1455 VISIT LOCKED DATE TIME: PHYSICIAN: DEBBIE DOWNS RESOURCE: DEBBIE DOWNS REASON FOR APPOINTMENT 1. 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 WHEN DID YOUR PAIN FIRST START? . BRIEFLY DESCRIBE HOW YOUR PAIN STARTED? . HOW DOES YOUR PAIN CHANGE WITH TIME? . DOES YOUR PAIN AWAKEN YOU FROM SLEEP? . HOW MANY HOURS OF SLEEP DO YOU NORMALLY GET? . ANY DIAGNOSTIC TESTING? . FACILITY WHERE TESTS WERE DONE? ____. PAIN TREATMENT TREATMENT YES CANCER HAVE YOU EVER HAD ANY TYPE OF CANCER?NO NO. PAIN SCREENING: PATIENT HAS A COMPLAINT OF ACUTE OR CHRONIC PAIN :YES FALL RISK SCREENING: SCREENING :NO FALLS IN THE PAST YEAR CALLES INVENTORY: QUESTIONNAIRE ASSESSEDTBD SCORE VALUE CALCULATED TBD CURRENT MEDICATIONS TAKING ZIPRASIDONE HCL 60 MG CAPSULE 1 CAPSULE WITH FOOD ORALLY TWICE A DAY TAKING QUETIAPINE FUMARATE 100 MG TABLET 1 TABLET ORALLY ONCE A DAY TAKING PRAZOSIN HCL 1 MG CAPSULE 1 CAPSULE AT BEDTIME ORALLY ONCE A DAY TAKING PAROXETINE HCL 10 MG TABLET 1 TABLET IN THE MORNING ORALLY ONCE A DAY TAKING OXCARBAZEPINE 150 MG TABLET ORALLY BID TAKING MONTELUKAST SODIUM 10 MG TABLET 1 TABLET IN THE EVENING ORALLY ONCE A DAY TAKING PANTOPRAZOLE SODIUM 40 MG TABLET DELAYED RELEASE 1 TABLET ORALLY ONCE A DAY TAKING VERAPAMIL HCL ER 120 MG TABLET EXTENDED RELEASE 1 TABLET ORALLY ONCE A DAY TAKING FERROUS SULFATE 325 (65 FE) MG TABLET 1 TABLET ORALLY ONCE A DAY TAKING RIZATRIPTAN BENZOATE 10 MG TABLET 1 TABLET NEEDED ONE TIME ORALLY ONCE A DAY TAKING CETIRIZINE HCL 10 MG TABLET 1 TABLET ORALLY ONCE A DAY TAKING HYDROXYZINE HCL 25 MG TABLET 1 TABLET NEEDED ORALLY EVERY 8 HRS TAKING ASPIRIN 81 MG TABLET CHEWABLE 1 TABLET ORALLY ONCE A DAY TAKING ALBUTEROL SULFATE 0.63 MG/3ML NEBULIZATION SOLUTION 3 ML NEEDED INHALATION EVERY 6 HRS TAKING GABAPENTIN 300 MG CAPSULE 1 CAPSULE ORALLY THREE TIMES A DAY TAKING TRAZODONE HCL 100 MG TABLET 1 TABLET AT BEDTIME ORALLY ONCE A DAY MEDICATION LIST REVIEWED AND RECONCILED WITH THE PATIENT PAST MEDICAL HISTORY PTSD HYPOGLYCEMIA MIGRAINES BORDERLINE PERSONALITY DISORDER DEGENERATION OF LUMBAR INTERVERTEBRAL DISC SLEEP APNEA KIDNEY STONES TENOSYNOVITIS GASTROESOPHAGEAL REFLUX OVER ACTIVE BLADDER HTN RECURRENT ACUTE SINUSITIS ASTHMA DEVIATED NASAL SEPTUM ALLERGIES SULFA (FOR ALLERGY USE ONLY): ANAPHYLAXIS CEFACLOR: ANAPHYLAXIS CLINDAMYCIN HCL: RASH LAMOTRIGINE: RASH PENICILLIN (FOR ALLERGIES USE ONLY): ANAPHYLAXIS TRIMETHOPRIM: ANAPHYLAXIS PROPRANOLOL HCL: DEPRESSION SURGICAL HISTORY GASTRIC BYPASS 2009 CARPAL TUNNEL BILATERAL 2007 HYSTERECTOMY TUBAL LIGATION UMBILICAL HERNIA 2010 FAMILY HISTORY FATHER: MOTHER: ALIVE SIBLINGS: UNKNOWN DAUGHTER(S): ALIVE 1973 FATHER KILLED BY [employer]UN[employer]MENT[employer] ENGINE[employer]ING TECHNICIAN/ 3 DAUGHTERS ALIVE. SOCIAL HISTORY GENERAL: TOBACCO USE ARE YOU A:CURRENT SMOKER HOW MANY CIGARETTES A DAY DO YOU SMOKE?5 OR LESS HOW SOON AFTER YOU WAKE UP DO YOU SMOKE YOUR FIRST CIGARETTE?6-30 MIN HOW OFTEN DO YOU SMOKE CIGARETTES?EVERY DAY PATIENT COUNSELED ON THE DANGERS OF TOBACCO USE AND URGED TO QUIT:10/04/2016 ARE YOU INTERESTED IN QUITTING?THINKING ABOUT QUITTING COUNSELED THE PATIENT ON SMOKING CESSATION, EDUCATION [id number] PAIN CLINIC PFS, CLERGY, PUBLIC HEALTH REFERRALS CLERGY REFERRAL NEEDED?NO WAS THE PROVIDER NOTIFIED OF ANY PERTINENT INFO?NO PFS REFERRAL NEEDED?NO PUBLIC HEALTH REFERRAL NEEDED?NO PATIENT: ____. HOSPITALIZATION/MAJOR DIAGNOSTIC PROCEDURE IN PATIENT MENTAL HEALTH /LAST ADMISSION 2016 REVIEW OF SYSTEMS CONSTITUTIONAL: RECENT ILLNESS DENIES . ANY CHANGE IN YOUR MEDICAL CONDITION? NO . CHILLS NO . FEVER NO, DENIES . WEIGHT LOSS DENIES . INFECTION: DO YOU HAVE NEW INFECTIONS? NO . DO YOU HAVE HISTORY OF MRSA? NO . MUSCULOSKELETAL: ANY NEW PATTERNS OF PAIN OR NUMBNESS? NO . SYTEMIC LUPUS NO . JOINT PAIN DENIES . JOINT STIFFNESS DENIES . GASTROENTEROLOGY: BOWEL INCONTINENCE DENIES . ANY NEW CHANGE IN BOWEL CONTROL? NO . BARRETTS ESOPHAGUS NO . CIRRHOSIS NO . HEPATITIS NO . LIVER FAILURE NO . ACID REFLUX NO . BLOOD IN STOOL DENIES . UNEXPLAINED WEIGHT LOSS NO . GENITOURINARY: ANY NEW CHANGE IN BLADDER CONTROL? NO . IS THERE A CHANCE YOU COULD BE ? NO . HEMATOLOGY/LYMPH: DENIES . BLEEDING DISORDER DENIES . DO YOU TAKE ANY BLOOD THINNERS? (FOR EXAMPLE- COUMADIN, PLAVIX, AGGRENOX, PLATEL, PRADAXA, OR XARELTO) NO . WHEN WAS YOUR LAST DOSE? DATE: TIME: . LOW PLATELET COUNT NO . SICKLE CELL DISEASE NO . VON WILLIEBRANDS NO . FACTOR V LEIDEN NO . THALLASEMIA NO . ANEMIA NO . EASY BRUISING NO . NEUROLOGY: HAVE YOU FALLEN IN THE PAST 6 MONTHS? YES . MYAASTHENIA GRAVIS NO . SEIZURES DENIES . CARDIOLOGY: DO YOU HAVE A PACEMAKER OR DEFIBRILLATOR? NO . ANGINA NO . HEART ATTACK NO . HEART SURGERY NO . CONGESTIVE HEART FAILURE/FLUID OVERLOAD NO . CHEST PAIN YES PERIODICALLY PAST 2YRS-SCHEDULED TO SEE CARDIOLOGY NEXT WEEK . HIGH BLOOD PRESSURE NO . IRREGULAR HEART BEAT NO . SHORTNESS OF BREATH DENIES . RESPIRATORY: HAVE YOU BEEN SICK IN THE PAST WEEK? NO . FEVER NO . FLU LIKE SYMPTOMS? NO . CPAP NO . BYPAP NO . ASTHMA YES . EMPHYSEMA NO . CHRONIC LUNG DISEASES NO . SHORTNESS OF BREATH ON EXERTION NO . DO YOU USE ANY TYPE OF TOBACCO (SMOKE, SMOKELESS, CHEW)? NO . COUGH NO, DENIES . SHORTNESS OF BREATH DENIES . SNORING NO . INTEGUMENTARY: DO YOU HAVE ANY RASHES OR OPEN SORES? NO . ALLERGIC/IMMUNO: ARE YOU ALLERGIC TO SHELLFISH OR IV DYE? NO . ANY NEW ALLERGIES? NO . PSYCHIATRIC: DO YOU HAVE THOUGHTS OF HURTING YOURSELF OR SOMEONE ELSE? NO . ARE YOU ABUSED, NEGLECTED, OR IN AN UNSAFE ENVIRONMENT? NO . ENDOCRINOLOGY: THYROID DISEASE DENIES . ARE YOU DIABETIC? NO . DIABETES DENIES . THYROID DISORDER NO . OTHER: DO YOU NEED ANY PRESCRIPTIONS? NO . IF YES, PLEASE LIST: ____ . ANY NEW PROBLEMS WITH YOUR MEDICATIONS? NO . WHEN DID YOU LAST EAT? ____ . WHEN DID YOU LAST DRINK? ____ . WHAT DID YOU LAST DRINK? ____ . NAME OF PERSON DRIVING YOU HOME? ____ . DO YOU HAVE ANY OTHER QUESTIONS OR CONCERNS NO . HEENT: CHANGE IN VISION DENIES . LOSS OF HEARING DENIES . TROUBLE SWALLOWING DENIES . PSYCHOLOGY: ANXIETY YES-FOLLOWS WITH [facility] . DEPRESSION YES . UROLOGY: URINARY INCONTINENCE DENIES . BLOOD IN URINE DENIES . REVIEWED BY: PROVIDER: DEBBIE SOLIS . VITAL SIGNS WT 239.8 LBS, HT 65 IN, BMI 39.90 INDEX, BP 123/84 MM HG, HR 106 /MIN, RR 18 /MIN, TEMP 101.8 F, OXYGEN SAT % 93%, NA INITIALS SC 13:53. EXAMINATION GENERAL EXAMINATION: GENERAL APPEARANCE:MORBIDLY OBESE. HEENT:HEAD:, NORMOCEPHALIC, EYES:, EYES NORMAL, NOSE:, NOSE CLEAR, THROAT: NORMAL. LUNGS:LUNG SOUNDS ARE CLEAR. HEART:HEART RATE REGULAR. ABDOMEN:SOFT AND NOT TENDER, NON-DISTENDED. MUSCULOSKELETAL:*. LUMBAR SACRAL SPINEMUSCLE STRENGTH TESTING 5/5 BILATERAL UPPER AND LOWER EXTREMITIES. PALPATION: + FOR PAIN OVER L/S SPINE. + FOR PAIN OVER L/S PARASPINALS. THORACIC SPINENEGATIVE FOR PAIN WITH PALPATION OF THORACIC SPINE. NEGATIVE FOR PAIN WITH PALPATION OF THORACIC PARASPINAL. CERVICALNEGATIVE FOR PAIN WITH PALPATION OF CERVICAL SPINE. NEGATIVE FOR PAIN WITH PALPATION OF CERVICAL PARASPINALS. NEGATIVE FOR PAIN WITH PALPATION OF TRAPEZIUS BILAT. SKIN:NORMAL, NO RASH. NEUROLOGIC EXAM:ALERT AND ORIENTED X 3, DTRS 1-2+ IN ALL 4 EXTREMITIES, DENIES UPPER EXTREMETIES SENSORY LOSS, DENIES LOWER EXTREMETIES SENSORY LOSS. DIAGNOSTIC: . ASSESSMENTS LUMBAGO OF LUMBAR REGION WITH SCIATICA - M54.40 (PRIMARY) MYALGIA - M79.1 TREATMENT LUMBAGO OF LUMBAR REGION WITH SCIATICA NOTES: PATIENT WAS ADVISED TO START A WALKING PROGRAM TO STRENGTHEN LUMBAR PARASPINAL MUSCLES AND IMPROVE MOBILITY. THEY WERE ADVISED THAT THIS WILL IMPROVE WEIGHT LOSS AND ALSO DEPRESSION/FIBROMYALGIA SYMPTOMS. ADVISED TO WALK 10 MINUTES EVERY OTHER DAY ON A FLAT SURFACE. EMPHASIZED THE IMPORTANCE OF DOING THIS CONSISTANTLY AND NOT SPORATICALLY TO AVOID INJURY. STRONG ADVISED NOT TO DO MORE THAN 10 MINUTES EVERY OTHER DSY FOR THE FIRST 4 WEEKS. OTHERS CLINICAL NOTES: ISTOP REGISTRY REVIEWED . PROCEDURE CODES FA211 ESTABILISHED PATIENT [facility] FACILITY CHARGE DISPOSITION & COMMUNICATION FOLLOW UP 6 WEEKS ELECTRONICALLY SIGNED BY IRMA CHAMBERS ON 10/12/2016 AT 06:41 PM EDT DISCLAIMER : THIS IS A VISIT SUMMARY EXTRACTED FROM THE [employer] CHART. IT IS NOT A COPY OF THE [email or web address] PROGRESS NOTE. VERONICA
== END ==
LOC: M PAIN 13:20
PROVIDERS: ATTEND Nurse Practitioner Family
DX: G89.29 Other chronic pain (principal); M54.40 Lumbago with sciatica, unspecified side; M79.1 Myalgia; G43.909 Migraine, unspecified, not intractable, without status migrainosus; F43.10 Post-traumatic stress disorder, unspecified; E16.2 Hypoglycemia, unspecified; J34.2 Deviated nasal septum; F60.3 Borderline personality disorder; G47.30 Sleep apnea, unspecified; F17.210 Nicotine dependence, cigarettes, uncomplicated; K21.9 Gastro-esophageal reflux disease without esophagitis; I10 Essential (primary) hypertension; E66.01 Morbid (severe) obesity due to excess calories; J45.909 Unspecified asthma, uncomplicated; Z98.84 Bariatric surgery status; Z79.82 Long term (current) use of aspirin; Z79.899 Other long term (current) drug therapy; Z88.2 Allergy status to sulfonamides; Z88.0 Allergy status to penicillin; Z88.1 Allergy status to other antibiotic agents; Z88.8 Allergy status to other drugs, medicaments and biological substances; Z68.39 Body mass index [BMI] 39.0-39.9, adult